=== PATIENT | female | born 2005 | race Two or more races ===

== ENCOUNTER 2025-05-10 12:09 | Observation (INO) | payer MEDICAID ==
[2025-05-10 12:36] LABS: Urine Protein, UAD TRACE (Negative)
[2025-05-10 12:42] LABS: Protein, Urine 39.5 mg/dL (1-14)
--- NOTE | 2025-05-10 12:50 | DVH ---
BIOPHYSICAL PROFILE HISTORY: PIH TECHNIQUE: Multiple transabdominal real-time grayscale sonographic images through the gravid uterus of the fetus with duplex Doppler color flow and M-mode spectral analysis FINDINGS: BIOPHYSICAL PROFILE: breathing score: 2 movement score: 2 tone score: 2 Quantitative GRIS score: 2 (GRIS: 14.1 Cm.) Total score: 8 The cervix not well visualized. Single live fetus in cephalic presentation. heart rate 142 beats per minute. Posterior placenta without previa or abruption IMPRESSION: Biophysical profile score: 8
[2025-05-10 12:56] LABS: Hematocrit 35.9 % (36.0-46.0); Hemoglobin 12.3 g/dL (12.2-16.2); Mean Corpuscular Hemoglobin 30.4 pg (28.0-32.0); Mean Corpuscular Volume 88.6 fL (80.0-100.0); Nucleated Red Blood Cells % 0.1 %
[2025-05-10 13:09] LABS: Alanine Aminotransferase 13 U/L (7-40); Albumin 3.5 g/dL (3.2-4.8); Alkaline Phosphatase 113 U/L (46-116); Anion Gap 9 (5-15); Glucose 86 mg/dL (74-106); Potassium 4.2 mmol/L (3.5-5.1); Sodium 139 mmol/L (136-145); Total Protein 6.2 g/dL (5.7-8.2); Uric Acid 4.9 mg/dL (3.1-7.8)
[2025-05-10 13:10] LABS: BUN/Creatinine Ratio 8.9 (10.0-20.0); Bilirubin, Total 0.3 mg/dL (0.2-1.0); Blood Urea Nitrogen < 5 mg/dL (9-23); Calcium 8.7 mg/dL (8.7-10.4); Carbon Dioxide 19 mmol/L (20-31); Chloride 111 mmol/L (98-107)
[2025-05-10 13:16] LABS: INR 0.88 (0.9-1.15); Partial Thromboplastin Time 25.1 SEC (24.5-34.5); Prothrombin Time 9.4 sec (9.3-11.8)
== END 2025-05-10 14:01 | disposition home or self-care (01) ==
LOC: LDRP 12:09 → UNDOADMOB 12:09 → LDRP 12:14
PROVIDERS: ADMIT Obstetrics & Gynecology; ATTEND Obstetrics & Gynecology
DX: O26.893 Other specified pregnancy related conditions, third trimester (principal); R03.0 Elevated blood-pressure reading, without diagnosis of hypertension; Z3A.32 32 weeks gestation of pregnancy; Z98.890 Other specified postprocedural states; Z86.2 Personal history of diseases of the blood and blood-forming organs and certain disorders involving the immune mechanism
CPT/HCPCS: 36415; 59025; 76819; 80053; 81001; 81002; 82570; 84156; 84550; 85025; 85610; 85730; 94760; G0378

== ENCOUNTER 2025-05-16 06:31 | Observation (INO) | payer MEDICAID ==
--- NOTE | 2025-05-16 11:44 | DVH ---
BIOPHYSICAL PROFILE HISTORY: PIH TECHNIQUE: Multiple transabdominal real-time grayscale sonographic images through the gravid uterus of the fetus with duplex Doppler color flow and M-mode spectral analysis FINDINGS: BIOPHYSICAL PROFILE: breathing score: 2 movement score: 2 tone score: 2 Quantitative GRIS score: 2 (GRIS: 15 Cm.) Total score: 8 The cervix not well visualized. Single live fetus in cephalic presentation. heart rate 141 beats per minute. Posterior placenta without previa or abruption IMPRESSION: Biophysical profile score: 8
[2025-05-16 12:13] LABS: Protein, Urine 41.8 mg/dL (1-14)
--- NOTE | 2025-05-16 12:57 | DVHDS2 ---
Physician Discharge Progress N Final Diagnosis: pih 33wks Operations or Procedures: Operations or Procedures nst reactive reviwed,sono Condition on Discharge: Good Disposition: Home Discharge Instructions: Diet: Regular Activity: No Restrictions, As Tolerated Medications: na Follow Up Care: Specialist: 1w Discharge Statement: "Patient was advised to return to the ER or call 911 if any headaches, dizziness, shortness of breath, chest pain, abdominal pain, bleeding, fevers, or worsening of medical condition. Patient was counseled about treatment plan, medications, possible side effects, patientverbalized understanding. All questions were answered to the best of my ability. This discharge took greater then 30 minutes in planning, reviewing documentat ion, counseling the patient, and discussing with other team members." Visit Coding OBGYN Date of Service: May 16, 2025 Billing Provider: RAJWINDER SANCHEZ DO CONTINUOUS DRIER HELPER Common Visit Codes: [id number] OBS CARE (HIGH) CONTINUOUS DRIER HELPER Procedure Codes: 68171-29- NON-STRESS TEST RAJWINDER SANCHEZ DO May 16, 2025 12:57
[2025-05-16 13:17] LABS: Urine Total Volume, 24 Hours 1400 mL
[2025-05-16 13:33] LABS: Protein, Urine < 6.0 mg/dL (1-14)
[2025-05-16 13:48] LABS: Creatinine Clearance, Urine 65.89 mL/min (75-115)
== END 2025-05-16 13:24 | disposition home or self-care (01) ==
LOC: UNDOADMOB 11:01 → LDRP 11:01 → UNDODISOB 13:24
PROVIDERS: ADMIT Obstetrics & Gynecology; ATTEND Obstetrics & Gynecology
DX: O13.3 Gestational [pregnancy-induced] hypertension without significant proteinuria, third trimester (principal); Z98.890 Other specified postprocedural states; Z3A.33 33 weeks gestation of pregnancy
CPT/HCPCS: 59025; 76819; 81002; 82570; 82575; 84156; 94760; G0378

== ENCOUNTER 2025-05-23 06:30 | Observation (INO) | payer MEDICAID ==
[2025-05-23] MEDS ORDERED: PREN-96 PO (10:21)
--- NOTE | 2025-05-23 10:44 | DVH ---
BIOPHYSICAL PROFILE HISTORY: PIH Comparison Study: US BIOPHYSICAL PROFILE on DOS: 05/16/25, US BIOPHYSICAL PROFILE on DOS: 05/10/25 TECHNIQUE: Multiple real-time grayscale sonographic images through the gravid uterus of the fetus wi th duplex Doppler color flow and M-mode spectral analysis FINDINGS: BIOPHYSICAL PROFILE: breathing score: 2 movement score: 2 tone score: 2 Quantitative GRIS score: 2 (GRIS: 16.4 Cm.) Total score: 8 The cervix is not visualized Single live fetus in cephalic presentation. heart rate 136 beats per minute. Posterior placenta without previa or abruption IMPRESSION: Biophysical profile score: 8
--- NOTE | 2025-05-24 00:02 | DVHDS2 ---
Physician Discharge Progress N Final Diagnosis: polyhydramnia 34wks Operations or Procedures: Operations or Procedures nst reactive reviwed,sono Condition on Discharge: Good Disposition: Home Discharge Instructions: Diet: Regular Activity: No Restrictions, As Tolerated Follow Up/Referral: as scheduled. Medications: na Follow Up Care: Specialist: 3d Discharge Statement: "Patient was advised to return to the ER or call 911 if any headaches, dizziness, shortness of breath, chest pain, abdominal pain, bleeding, fevers, or worsening of medical condition. Patient was counseled about treatment plan, medications, possible side effects, patientverbalized understanding. All questions were answered to the best of my ability. This discharge took greater then 30 minutes in planning, reviewing documentation, counseling the patient, and discussing with other team members." Visit Coding OBGYN Date of Service: May 23, 2025 Billing Provider: RAJWINDER SANCHEZ DO SLABBING MACHINE OPERATOR Common Visit Codes: 11274-[id number] INP/OBS CARE (HIGH) SLABBING MACHINE OPERATOR Procedure Codes: 57471-36- NON-STRESS TEST RAJWINDER SANCHEZ DO May 24, 2025 00:02
== END 2025-05-23 11:40 | disposition home or self-care (01) ==
LOC: UNDOADMOB 09:44 → LDRP 09:44 → UNDODISOB 11:40
PROVIDERS: ADMIT Obstetrics & Gynecology; ATTEND Obstetrics & Gynecology
DX: O40.3XX0 Polyhydramnios, third trimester, not applicable or unspecified (principal); Z3A.34 34 weeks gestation of pregnancy; Z79.899 Other long term (current) drug therapy
CPT/HCPCS: 59025; 76819; 81002; 94760; G0378

== ENCOUNTER 2025-05-30 06:44 | Observation (INO) | payer MEDICAID ==
[~2025-05-30] VITALS: Ht 154.9 cm; Wt 85.3 kg
[~2025-05-30 06:44] MED LIST: PREN-96 PO
--- NOTE | 2025-05-30 10:55 | DVH ---
BIOPHYSICAL PROFILE HISTORY: PIH TECHNIQUE: Multiple transabdominal real-time grayscale sonographic images through the gravid uterus of the fetus with duplex Doppler color flow and M-mode spectral analysis FINDINGS: BIOPHYSICAL PROFILE: breathing score: 2 movement score: 2 tone score: 2 Quantitative GRIS score: 2 (GRIS: 17 Cm.) Total score: 8/8 The cervix is not well evaluated on this exam. Single live fetus in cephalic presentation. heart rate 137 beats per minute. Posterior placenta without previa or abruption IMPRESSION: 1. Biophysical profile score: 8/
--- NOTE | 2025-06-01 16:29 | DVHDS2 ---
Physician Discharge Progress N Final Diagnosis: 35wks [facility] Operations or Procedures: Operations or Procedures nst reactive reviwed,sono Condition on Discharge: Good Disposition: Home Discharge Instructions: Diet: Consistent carbohydrate Activity: Light activity Medications: na Follow Up Care: Specialist: 2d Discharge Statement: "Patient was advised to return to the ER or call 911 if any headaches, dizziness, shortness of breath, chest pain, abdominal pain, bleeding, fevers, or worsening of medical condition. Patient was counseled about treatment plan, medications, possible side effects, patientverbalized understanding. All questions were answered to the best of my ability. This discharge took greater then 30 minutes in planning, reviewing document ation, counseling the patient, and discussing with other team members." Visit Coding OBGYN Date of Service: May 30, 2025 Billing Provider: RAJWINDER SANCHEZ DO CAT SCAN TECH Common Visit Codes: 67561-ITTILPD OBS CARE (HIGH) CAT SCAN TECH Procedure Codes: 63319-86- NON-STRESS TEST RAJWINDER SANCHEZ DO Jun 01, 2025 16:29
== END 2025-05-30 11:34 | disposition home or self-care (01) ==
LOC: LDRP 09:55 → UNDOADMOB 09:55 → LDRP 10:00
PROVIDERS: ADMIT Obstetrics & Gynecology; ATTEND Obstetrics & Gynecology
DX: O13.3 Gestational [pregnancy-induced] hypertension without significant proteinuria, third trimester (principal); Z3A.35 35 weeks gestation of pregnancy; Z98.890 Other specified postprocedural states
CPT/HCPCS: 59025; 76819; 81002; 94760; G0378

== ENCOUNTER 2025-06-01 13:45 | Observation (INO) | payer MEDICAID ==
[2025-06-01 14:22] LABS: Hematocrit 38.4 % (36.0-46.0); Hemoglobin 13.0 g/dL (12.2-16.2); Mean Corpuscular Hemoglobin 29.6 pg (28.0-32.0); Mean Corpuscular Volume 87.7 fL (80.0-100.0); Nucleated Red Blood Cells % 0.0 %
[2025-06-01 14:34] LABS: Alanine Aminotransferase 10 U/L (7-40); Albumin 3.8 g/dL (3.2-4.8); Alkaline Phosphatase 132 U/L (46-116); Anion Gap 11 (5-15); BUN/Creatinine Ratio 12.7 (10.0-20.0); Bilirubin, Total 0.5 mg/dL (0.2-1.0); Blood Urea Nitrogen 8 mg/dL (9-23); Calcium 8.7 mg/dL (8.7-10.4); Carbon Dioxide 20 mmol/L (20-31); Chloride 105 mmol/L (98-107); Glucose 88 mg/dL (74-106); Potassium 4.6 mmol/L (3.5-5.1); Sodium 136 mmol/L (136-145); Total Protein 6.7 g/dL (5.7-8.2); Uric Acid 5.0 mg/dL (3.1-7.8)
[2025-06-01 14:35] LABS: INR 0.91 (0.9-1.15); Partial Thromboplastin Time 24.8 SEC (24.5-34.5); Prothrombin Time 9.7 sec (9.3-11.8)
[2025-06-01 15:44] LABS: Urine Protein, UAD 1+ (Negative)
[2025-06-01 15:48] LABS: Protein, Urine 42.4 mg/dL (1-14)
--- NOTE | 2025-06-01 16:25 | DVHDS2 ---
Physician Discharge Progress N Final Diagnosis: Gestational HTN Operations or Procedures: Operations or Procedures NST Commentary: Commentary PIH labs negative Condition on Discharge: Stable Disposition: Home Discharge Instructions: Diet: Regular Activity: No Restrictions, As Tolerated Follow Up/Referral: As scheduled Medications: NA Follow Up Care: Discharge Statement: "Patient was advised to return to the ER or call 911 if any headaches, dizziness, shortness of breath, chest pain, abdominal pain, bleeding, fevers, or worsening of medical condition. Patient was counseled about treatment plan, medications, possible side effects, patientverbalized understanding. All questions were answered to the best of my ability. This discharge took greater then 30 minutes in planning, reviewing documentation, counseling the patient, and discussing with other team members." Visit Coding OBGYN Date of Service: Jun 01, 2025 Billing Provider: ROS MEDRANO DO FURNITURE UPHOLSTERER APPRENTICE Common Visit Codes: 10545-JQC/OBS SAME DATE (HIGH) FURNITURE UPHOLSTERER APPRENTICE Procedure Codes: 12697-18- NON-STRESS TEST ROS MEDRANO DO Jun 01, 2025 16:25
== END 2025-06-01 16:30 | disposition home or self-care (01) ==
LOC: LDRP 13:45
PROVIDERS: ADMIT Obstetrics & Gynecology; ATTEND Obstetrics & Gynecology
DX: O13.3 Gestational [pregnancy-induced] hypertension without significant proteinuria, third trimester (principal); O21.2 Late vomiting of pregnancy; Z3A.35 35 weeks gestation of pregnancy; Z98.890 Other specified postprocedural states
CPT/HCPCS: 36415; 59025; 80053; 81001; 81002; 82570; 84156; 84550; 85025; 85610; 85730; 94760; G0378

== ENCOUNTER 2025-06-06 08:08 | Observation (INO) | payer MEDICAID ==
--- NOTE | 2025-06-06 10:50 | DVH ---
BIOPHYSICAL PROFILE HISTORY: PIH TECHNIQUE: Multiple transabdominal real-time grayscale sonographic images through the gravid uterus of the fetus with duplex Doppler color flow and M-mode spectral analysis FINDINGS: BIOPHYSICAL PROFILE: breathing score: 2 movement score: 2 tone score: 2 Quantitative RGIS score: 2 (GRIS: 14.5 Cm.) Total score: 8 The cervix not well visualized. Single live fetus in cephalic presentation. heart rate 141 beats per minute. Posterior placenta without previa or abruption IMPRESSION: Biophysical profile score: 8
--- NOTE | 2025-06-06 13:17 | DVHDS2 ---
Physician Discharge Progress N Final Diagnosis: pih 36wks Operations or Procedures: Operations or Procedures nst reactive reviwed,yueo Condition on Discharge: Good Disposition: Home Discharge Instructions: Diet: Regular Activity: Light activity Medications: na Follow Up Care: Specialist: 4d Discharge Statement: "Patient was advised to return to the ER or call 911 if any headaches, dizziness, shortness of breath, chest pain, abdominal pain, bleeding, fevers, or worsening of medical condition. Patient was counseled about treatment plan, medications, possible side effects, patientverbalized understanding. All questions were answered to the best of my ability. This discharge took greater then 30 minutes in planning, reviewing documentation, counseling the patient, and discussing with other team members." Visit Coding OBGYN Date of Service: Jun 06, 2025 Billing Provider: RAJWINDER SANCHEZ DO IT RISK ANALYST Common Visit Codes: [id number] OBS CARE (HIGH) IT RISK ANALYST Procedure Codes: 24025-17- NON-STRESS TEST RAJWINDER SANCHEZ DO Jun 06, 2025 13:17
== END 2025-06-06 11:25 | disposition home or self-care (01) ==
LOC: UNDOADMOB 09:54 → LDRP 09:54
PROVIDERS: ADMIT Obstetrics & Gynecology; ATTEND Obstetrics & Gynecology
DX: O13.3 Gestational [pregnancy-induced] hypertension without significant proteinuria, third trimester (principal); Z3A.36 36 weeks gestation of pregnancy; Z98.890 Other specified postprocedural states
CPT/HCPCS: 59025; 76819; 81002; 94760; G0378

== ENCOUNTER 2025-06-13 06:43 | Observation (INO) | payer MEDICAID ==
--- NOTE | 2025-06-13 19:55 | DVH ---
BIOPHYSICAL PROFILE HISTORY: PIH TECHNIQUE: Multiple transabdominal real-time grayscale sonographic images through the gravid uterus of the fetus with duplex Doppler color flow and M-mode spectral analysis FINDINGS: BIOPHYSICAL PROFILE: breathing score: 2 movement score: 2 tone score: 2 Quantitative GRIS score: 2 (GRIS: 15 Cm.) Total score: 8/8 The cervix obscured by head Single live fetus in cephalic presentation. heart rate 148 beats per minute. Posterior Grade 2 placenta without previa or abruption Single live fetus at 37 weeks 4 days Biophysical profile score 8/8 corresponding to an FER of 06/30/2025 IMPRESSION: 1. Biophysical profile score: 8/8 HS:Y
--- NOTE | 2025-06-13 19:57 | DVHDS2 ---
Physician Discharge Progress N Final Diagnosis: testing for BP monitoring Operations or Procedures: Operations or Procedures 20yo IUP@37.4wks, +FM, denies UCs/LOF/VB/MARRUFO/vision changes/RUQ pain VSS, normotensive, see CPN NST reactive BPP 04/20 FKC/PreE/labor precautions reviewed Dr. Marrufo consulted, agrees with POC. Condition on Discharge: Stable Disposition: Home Discharge Instructions: Diet: Regular Activity: No Restrictions, As Tolerated Medications: see med list Follow Up Care: Specialist: f/u in 1wk Discharge Statement: "Patient was advised to return to the ER or call 911 if any headaches, dizziness, shortness of breath, chest pain, abdominal pain, bleeding, fevers, or worsening of medical condition. Patient was counseled about treatment plan, medications, possible side effects, patientverbalized understanding. All questions were answered to the best of my ability. This discharge took greater then 30 minutes in planning, reviewing documentation, counseling the patient, and discussing with other team members." Visit Coding OBGYN Date of Service: Jun 13, 2025 Billing Provider: JANAK RANDLE CNM IMITATION MARBLE MECHANIC Common Visit Codes: 50504-[id number] OBS CARE (HIGH) IMITATION MARBLE MECHANIC Procedure Codes: 58210-86- NON-STRESS TEST JANAK RANDLE CNM Jun 13, 2025 19:57
== END 2025-06-13 20:17 | disposition home or self-care (01) ==
LOC: LDRP 19:07
PROVIDERS: ADMIT Obstetrics & Gynecology; ATTEND Obstetrics & Gynecology
DX: Z36.89 Encounter for other specified antenatal screening (principal); Z3A.37 37 weeks gestation of pregnancy; Z98.890 Other specified postprocedural states
CPT/HCPCS: 59025; 76819; 81002; 94760; G0378

== ENCOUNTER 2025-06-16 10:01 | Observation (INO) | payer MEDICAID ==
--- NOTE | 2025-06-16 20:46 | DVH ---
BIOPHYSICAL PROFILE HISTORY: IUGR Comparison Study: US BIOPHYSICAL PROFILE on DOS: 06/13/25, US BIOPHYSICAL PROFILE on DOS: 06/06/25, US BIOPHYSICAL PROFILE on DOS: 05/30/25, US BIOPHYSICAL PROFILE on DOS: 05/23/25, US BIOPHYSICAL PROFILE o n DOS: 05/16/25 TECHNIQUE: Multiple real-time grayscale sonographic images through the gravid uterus of the fetus wi th duplex Doppler color flow and M-mode spectral analysis FINDINGS: BIOPHYSICAL PROFILE: breathing score: 2 movement score: 2 tone score: 2 Quantitative GRIS score: 2 (GRIS: 12.6 Cm.) Total score: 8, normal Single live fetus in cephalic presentation. heart rate 154 beats per minute. Unremarkable placenta without previa or abruption Single live intrauterine . IMPRESSION: 1. Biophysical profile score: 8/8, normal
--- NOTE | 2025-06-17 09:36 | DVHDS2 ---
Physician Discharge Progress N Final Diagnosis: IUGR 38WKS Operations or Procedures: Operations or Procedures NST REACTIVE REVIWED,SONO Condition on Discharge: Good Disposition: Home Discharge Instructions: Diet: Regular Activity: Light activity Medications: NA Follow Up Care: Specialist: 3D Discharge Statement: "Patient was advised to return to the ER or call 911 if any headaches, dizziness, shortness of breath, chest pain, abdominal pain, bleeding, fevers, or worsening of medical condition. Patient was counseled about treatment plan, medications, possible side effects, patientverbalized understanding. All questions were answered to the best of my ability. This discharge took greater then 30 minutes in planning, reviewing documentation, counseling the patient, and discussing with other team members." Visit Coding OBGYN Date of Service: Jun 16, 2025 Billing Provider: RAJWINDER SANCHEZ DO GRANULATOR Common Visit Codes: [id number] OBS CARE (HIGH) GRANULATOR Procedure Codes: 26616-05- NON-STRESS TEST RAJWINDER SANCHEZ DO Jun 17, 2025 09:36
== END 2025-06-16 11:49 | disposition home or self-care (01) ==
LOC: LDRP 10:01
PROVIDERS: ADMIT Obstetrics & Gynecology; ATTEND Obstetrics & Gynecology
DX: O36.5930 Maternal care for other known or suspected poor fetal growth, third trimester, not applicable or unspecified (principal); Z3A.38 38 weeks gestation of pregnancy; Z98.890 Other specified postprocedural states
CPT/HCPCS: 59025; 76819; 81002; 94760; G0378

== ENCOUNTER 2025-06-19 16:23 | Observation (INO) | payer MEDICAID ==
[~2025-06-19] VITALS: Ht 154.9 cm; Wt 88.0 kg
[2025-06-19 17:02] LABS: Hematocrit 37.0 % (36.0-46.0); Hemoglobin 12.7 g/dL (12.2-16.2); Mean Corpuscular Hemoglobin 30.2 pg (28.0-32.0); Mean Corpuscular Volume 88.0 fL (80.0-100.0); Nucleated Red Blood Cells % 0.0 %
[2025-06-19 17:14] LABS: Protein, Urine 137.3 mg/dL (1-14)
--- NOTE | 2025-06-19 17:16 | DVH ---
EXAM: US BIOPHYSICAL PROFILE HISTORY: PIH COMPARISON: US BIOPHYSICAL PROFILE on DOS: 06/16/25 TECHNIQUE: Transabdominal real time barksdale scale, color, and doppler evaluation. Permanent images are maintained in the patient record. FINDINGS: Normal biophysical profile score 8 out of the. Normal heart tone 135 beats per minute. Cephal ic presentation. Normal amniotic fluid index measuring 13.1 cm. Posterior placenta location. No ngoc centa abruption. IMPRESSION: 1. Normal biophysical profile score.
[2025-06-19 17:21] LABS: Alanine Aminotransferase 14 U/L (7-40); Albumin 3.7 g/dL (3.2-4.8); Anion Gap 11 (5-15); BUN/Creatinine Ratio 15.4 (10.0-20.0); Blood Urea Nitrogen 10 mg/dL (9-23); Calcium 9.4 mg/dL (8.7-10.4); Carbon Dioxide 20 mmol/L (20-31); Glucose 82 mg/dL (74-106); Sodium 138 mmol/L (136-145); Total Protein 6.9 g/dL (5.7-8.2); Uric Acid 3.8 mg/dL (3.1-7.8)
[2025-06-19 17:25] LABS: INR 0.86 (0.9-1.15); Partial Thromboplastin Time 24.8 SEC (24.5-34.5); Prothrombin Time 9.3 sec (9.3-11.8)
[2025-06-19 17:35] LABS: Alkaline Phosphatase 151 U/L (46-116); Bilirubin, Total 0.2 mg/dL (0.2-1.0); Chloride 107 mmol/L (98-107); Potassium 5.4 mmol/L (3.5-5.1)
[2025-06-19 17:42] LABS: Urine Protein, UAD 1+ (Negative)
[2025-06-19] MEDS: LACTATED RINGER'S 1,000 ML IV ONE (19:10)
[2025-06-19 21:38] LABS: Anion Gap 13 (5-15); BUN/Creatinine Ratio 21.2 (10.0-20.0); Blood Urea Nitrogen 11 mg/dL (9-23); Potassium 4.0 mmol/L (3.5-5.1); Sodium 140 mmol/L (136-145)
[2025-06-19 21:56] LABS: Alanine Aminotransferase < 9 U/L (7-40); Albumin 2.9 g/dL (3.2-4.8); Alkaline Phosphatase 116 U/L (46-116); Bilirubin, Total 0.2 mg/dL (0.2-1.0); Calcium 8.0 mg/dL (8.7-10.4); Carbon Dioxide 19 mmol/L (20-31); Chloride 108 mmol/L (98-107); Glucose 68 mg/dL (74-106); Total Protein 5.2 g/dL (5.7-8.2)
[2025-06-19 22:54] LABS: Protein, Urine 42.9 mg/dL (1-14)
--- NOTE | 2025-06-19 23:15 | DVHDS2 ---
Physician Discharge Progress N Final Diagnosis: testing for IUGR and PIH Operations or Procedures: Operations or Procedures S: 20yo IUP@38.3wks, pt sent in from Dr. Ornelas's office for elevated BP. Denies UCs/LOF/VB/MARRUFO/vision changes/RUQ pain. Endorses +FM. PNC with Dr. Marrufo, complicated by IUGR. Pt has f/u with Dr. Ornelas on 06/21/25. O: VSS, see CPN NST reactive PO hydration - water and juice Laboratory Tests Test 06/19/25 16:51 06/19/25 16:53 06/19/25 21:02 06/19/25 21:10 Range/Units White Blood Count 10.3 4.4-10.8 10^3/uL Red Blood Count 4.20 4.0-5.20 10^6/uL Hemoglobin 12.7 12.2-16.2 g/dL Hematocrit 37.0 36.0-46.0 % Mean Corpuscular Volume 88.0 80.0-100.0 fL Mean Corpuscular Hemoglobin 30.2 28.0-32.0 pg Mean Corpuscular Hemoglobin Concent 34.3 32.0-36.0 g/dL Red Cell Distribution Width 13.6 11.8-14.3 % Platelet Count 195 140-450 10^3/uL Mean Platelet Volume 10.7 6.9-10.8 fL Neutrophils (%) (Auto) 69.9 37.0-80.0 % Lymphocytes (%) (Auto) 17.4 10.0-50.0 % Monocytes (%) (Auto) 8.1 0.0-12.0 % Eosinophils (%) (Auto) 4.1 0.0-7.0 % Basophils (%) (Auto) 0.5 0.0-2.0 % Neutrophils # (Auto) 7.2 1.6-8.6 10 ^3/uL Lymphocytes # (Auto) 1.8 0.4-5.4 10 ^3/uL Monocytes # (Auto) 0.8 0-1.3 10 ^3/uL Eosinophils # (Auto) 0.4 0-0.8 10 ^3/uL Basophils # (Auto) 0 0-0.2 10 ^3/uL Nucleated Red Blood Cells 0.0 % Prothrombin Time 9.3 9.3-11.8 sec Prothrombin Time INR 0.86 L 0.9-1.15 Activated Partial Thromboplast Time 24.8 24.5-34.5 SEC Sodium Level 138 140 136-145 mmol/L Potassium Level 5.4 H 4.0 3.5-5.1 mmol/L Chloride Level 107 108 H 98-107 mmol/L Carbon Dioxide Level 20 19 L 20-31 mmol/L Anion Gap 11 13 5-15 Blood Urea Nitrogen 10 11 9-23 mg/dL Creatinine 0.65 0.52 L 0.550-1.02 mg/dL Glomerular Filtration Rate Calc 128 135 >90 mL/min BUN/Creatinine Ratio 15.4 21.2 H 10.0-20.0 Serum Glucose 82 68 L 74-106 mg/dL Uric Acid 3.8 3.1-7.8 mg/dL Calcium Level 9.4 8.0 L 8.7-10.4 mg/dL Total Bilirubin 0.2 0.2 0.2-1.0 mg/dL Aspartate Amino Transferase (AST) 37 11 L 13-40 U/L Alanine Aminotransferase (ALT) 14 < 9 7-40 U/L Alkaline Phosphatase 151 H 116 46-116 U/L Total Protein 6.9 5.2 L 5.7-8.2 g/dL Albumin 3.7 2.9 L 3.2-4.8 g/dL Urine Color Yellow Yellow Urine Clarity Clear Clear Urine pH 6.5 5.0-9.0 Urine Specific [place] 1.033 1.001-1.035 Urine Protein 1+ H Negative Urine Ketones Negative Negative Urine Blood Negative Negative /uL Urine Nitrite Negative Negative Urine Bilirubin Negative Negative Urine Urobilinogen Normal Negative mg/dL Urine Leukocyte Esterase 2+ Negative /uL Urine RBC 3 0 - 4 /hpf Urine Microscopic WBC 22 H 0-5 /HPF Urine Squamous Epithelial Cells Few <5 /hpf Urine Bacteria Few H None Seen /hpf Urine Mucus Few None Seen Urine Creatinine 177.11 H 56.95 30.0-125.0 mg/dL Urine Protein/Creatinine Ratio 0.78 0.75 Urine Glucose Normal Normal mg/dL Urine Total Protein 137.3 H 42.9 H 1-14 mg/dL Test 06/19/25 23:22 Range/Units POC Glucose 135 H 70-106 mg/dl A: 20yo IUP@38.3wks testing for IUGR/PIH P: Dr. Marrufo consulted, plan is to D/C home f/u for NST/BPP on 06/21/[address] Marrufo FKC/PreE/labor precautions reviewed Other Interventions Other Interventions [place] [address] Ph: [phone] DIAGNOSTIC IMAGING Diagnostic Imaging Report : [id number] Signed PATIENT: ABBIE TUTTLE ACCT: [id number] UNIT: [id number] : 2005 LOC: [facility] ROOM / BED: TRIAGE3 / A AGE / SEX: 20 / F ADM STATUS: ADM IN SERVICE 35 ORDERING PHYSICIAN: JANAK RANDLE CNM PROCEDURE(s): BPP - BIOPHYSICAL PROFILE REASON: PIH ORDER NUMBER(s): [id number], ACCESSION NUMBER(s): [id number] EXAM: US BIOPHYSICAL PROFILE HISTORY: PIH COMPARISON: US BIOPHYSICAL PROFILE on DOS: 06/16/25 TECHNIQUE: Transabdominal real time barksdale scale, color, and doppler evaluation. Permanent images are maintained in the patient record. FINDINGS: Normal biophysical profile score 8 out of the. Normal heart tone 135 beats per minute. Cephalic presentation. Normal amniotic fluid index measuring 13.1 cm. Posterior placenta location. No placenta abruption. IMPRESSION: 1. Normal biophysical profile score. ATED BY: LANRE ROBERTS MD DICTATED DATE/TIME: 06/19/251712 SIGNED BY: LANRE ROBERTS MD SIGNED DATE/TIME: 06/19/251712 CC: Condition on Discharge: Stable Disposition: Home Discharge Instructions: Diet: Regular Activity: No Restrictions, As Tolerated Medications: see med list Follow Up Care: Specialist: f/u for NST/BPP on 06/21/[address] Marrufo Discharge Statement: "Patient was advised to return to the ER or call 911 if any headaches, dizziness, shortness of breath, chest pain, abdominal pain, bleeding, fevers, or worsening of medical condition. Patient was counseled about treatment plan, medications, possible side effects, patientverbalized understanding. All questions were answered to the best of my ability. This discharge took greater then 30 minutes in planning, reviewing documentation , counseling the patient, and discussing with other team members." Visit Coding OBGYN Date of Service: Jun 20, 2025 Billing Provider: JANAK RANDLE CNM UAT TESTER Common Visit Codes: [id number] OBS CARE (HIGH) UAT TESTER Procedure Codes: 36993-99- NON-STRESS TEST JANAK RANDLE CNM Jun 19, 2025 23:15
[2025-06-19] MEDS ORDERED: PREN1TAB71 PO (23:38)
== END 2025-06-20 | disposition home or self-care (01) ==
LOC: LDRP 16:23
PROVIDERS: ADMIT Obstetrics & Gynecology; ATTEND Obstetrics & Gynecology
DX: O13.3 Gestational [pregnancy-induced] hypertension without significant proteinuria, third trimester (principal); O36.5930 Maternal care for other known or suspected poor fetal growth, third trimester, not applicable or unspecified; Z3A.38 38 weeks gestation of pregnancy; Z98.890 Other specified postprocedural states; Z79.899 Other long term (current) drug therapy
CPT/HCPCS: 36415; 59025; 76819; 80053; 81001; 81002; 82570; 82962; 84156; 84550; 85025; 85610; 85730; 94762; 96360; 96361; G0378; 96366

== ENCOUNTER 2025-06-21 06:13 | Inpatient (IN) | payer MEDICAID ==
[~2025-06-21] VITALS: Ht 154.9 cm; Wt 87.5 kg
[~2025-06-21 06:13] MED LIST changes: +PREN1TAB71 PO
[2025-06-21] MEDS ORDERED: LIDOCAINE 2%HCL (LOCAL ANESTH.) INJ 20ML MDV IJ PRN (23:15)
[2025-06-21] MEDS ORDERED: BUTORPHANOL TARTRATE 2 MG/1 ML VIAL IV PRN ×2 (23:15)
[2025-06-21 23:40] LABS: Hematocrit 34.9 % (36.0-46.0); Hemoglobin 11.8 g/dL (12.2-16.2); Mean Corpuscular Hemoglobin 29.9 pg (28.0-32.0); Mean Corpuscular Volume 88.1 fL (80.0-100.0); Nucleated Red Blood Cells % 0.0 %
[2025-06-21 23:55] LABS: INR 0.86 (0.9-1.15); Partial Thromboplastin Time 24.5 SEC (24.5-34.5); Prothrombin Time 9.3 sec (9.3-11.8)
[2025-06-22] LABS: Alanine Aminotransferase 10 U/L (7-40); Albumin 3.5 g/dL (3.2-4.8); Alkaline Phosphatase 144 U/L (46-116); Anion Gap 12 (5-15); BUN/Creatinine Ratio 14.8 (10.0-20.0); Blood Urea Nitrogen 9 mg/dL (9-23); Calcium 8.6 mg/dL (8.7-10.4); Carbon Dioxide 20 mmol/L (20-31); Chloride 108 mmol/L (98-107); Glucose 113 mg/dL (74-106); Potassium 3.8 mmol/L (3.5-5.1); Sodium 140 mmol/L (136-145); Total Protein 6.2 g/dL (5.7-8.2); Uric Acid 4.5 mg/dL (3.1-7.8)
[2025-06-22 00:01] LABS: Bilirubin, Total 0.2 mg/dL (0.2-1.0)
--- NOTE | 2025-06-22 00:04 | DVHHP2 ---
OB CC & HPI Date Date of Admission: Jun 21, 2025 Patient Identification: : 2 Para: 0 EDC: Jun 30, 2025 EGA: 38w 5d Chief Complaints: Reason for admission: induction of labor Indication for induction: other (Pre-Eclampsia and IUGR) Other reason for admission: Pre-eclampsia & IUGR Admission Nurse Assessment Rev: Yes History of Present Complaints Ms Kirkland presents to Place for IOL for IUGR and pre eclampsia. She reports normal FM, no UC, no LOF, no MARRUFO, vision changes or epigastric pain. Past Medical History Cardiac: No pertinent Hx Pulmonary: No pertinent Hx Central Nervous System: No pertinent Hx GI: No pertinent Hx Hemotology/Oncology: No pertinent Hx Hepatobiliary: No pertinent Hx Psychiatric: No pertinent Hx Musculoskeletal: No pertinent Hx Rheumotologic: No pertinent Hx Infectious Disease: No peritnent Hx ENT: No pertinent Hx Renal/: No pertinent Hx Endocrine: No pertinent Hx Dermatology: No pertinent Hx Past Surgical History: No pertinent Hx OB History OB History Care: Good Care Ultrasounds: Normal mid trimester US Obstetrical Complications: Pre-eclampsia, Growth Restriction Medical Complications: None Allergies: Coded Allergies: Avocado (Verified Allergy, Intermediate, 06/19/25) ITCHY, TINGLING MOUTH AND THROAT Uncoded Allergies: MELON (Allergy, Intermediate, 06/19/25) ITCHY, TINGLING MOUTH AND THROAT Home Meds Reported Medications Vit W/ Ferrous Fumara (PNV PLUS MULTIVI) Plus Tab, 1 TAB PO DAILY, TAB 06/19/25 Vit W/ Ferrous Fumara ( One Daily) Daily Tab, 1 TAB PO DAILY, #90 TAB 3 Refills 05/23/25 Current Medications Current Medications Medications (Trade) Dose Ordered Sig/Miguel Route PRN Reason Start Time Stop Time Status Last Admin Lactated Ringer's 1,000 ml @ 125 mls/hr Q8H IV 06/21/25 23:15 Witch Sabrina (Tucks) 1 pad PRN PRN TOP PERINEAL AREA DISCOMFORT 06/21/25 23:15 Sodium Lauryl Sulfate (Phisoderm) 240 ml PRN PRN TOP PERINEAL AREA DISCOMFORT 06/21/25 23:15 Benzocaine (Dermoplast) 1 applic PRN PRN TOP PERINEAL AREA DISCOMFORT 06/21/25 23:15 Butorphanol Tartrate (Stadol Injection) 1 mg Q4HPRN PRN IV MODERATE PAIN (4-6 PAIN SCALE) 06/21/25 23:15 Butorphanol Tartrate (Stadol Injection) 2 mg Q4HPRN PRN IV SEVERE PAIN (7-10 PAIN SCALE) 06/21/25 23:15 Misoprostol (Cytotec) 50 mcg Q4HPRN PRN PO CERVICAL RIPENING 06/21/25 23:15 Lidocaine HCl (Xylocaine) 20 ml ONCE PRN IJ PERINEAL AREA DISCOMFORT 06/21/25 23:15 Family & Social History Family/Social History Past Family/Social History: Non pertinent Blood Type: O- Rubella: immune RPR/VDRL: Negative GBS Status: Negative HBsAG: Negative Review of Systems Constitutional: No symptom reported Ears, Nose, & Throat: No symptom reported Eyes: No symptom reported Pulmonary/Respiratory: No symptom reported Cardiovascular: No symptom reported Gastrointestinal: No symptom reported Genitourinary: No symptom reported Musculoskeletal: No symptom reported Skin: No symptom reported Psychiatric: No symptom reported Endocrine: No symptom reported Hemotologic/Lymphatic: No symptom reported OB Admission Exam Physical Exam HEENT: TMs Normal, Fontanelles Normal, Nasal Mucosa Normal, Eyes non-injected, Oropharynx Normal, PERRLA, Moist Membranes, EOMI Heart: Rhythm Normal Lungs: Clear Abdomen: Gravid (and non tender to palpation) Extremities: Normal Reflexes: Normal Cervical Dilatation: Fingertip (Exam by RN) Effacement: 0% Station: -2 Membranes: Intact Motor Grader Rough Grade Variability: Minimal (3-5) Contractions on Admission: None OB Plan Plan Admitting Diagnosis: <> IUP at 38w 5d <> IUGR <> Preeclampsia <> INDUCTION OF LABOR FOR IUGR AND PIH Plan: Induction Induction Methd: Misoprostol protocol Other Plan: IOL process, cervical ripening with medication, cervical ripening balloon, oxytocin etc including the risks, benefits and all her options including primary Section discussed with the patient & partner. The patient wishes to proceed with trial of vaginal delivery. Informed consent obtained. Risk of pain, bleeding, infection, discussed with the patient and partner Consent for possible blood transfusion obtained. All questions answered. Admit to Place for scheduled IOL Routine L&D admission orders Misoprostol per protocol EFM per policy & protocol Intrauterine resuscitation PRN Labor analgesia PRN Encourage frequent position change to facilitate labor & descent Supportive Care Anticipate Visit Coding OBGYN Date of Service: Jun 21, 2025 Billing Provider: EULOGIO SANCHEZ CNM ORDNANCE TECHNICIAN Common Visit Codes: [id number] INP/OBS CARE (HIGH) ORDNANCE TECHNICIAN Procedure Codes: 72084-75- NON-STRESS TEST EULOGIO SANCHEZ CNM Jun 22, 2025 00:04
[2025-06-22 00:16] LABS: Amphetamine Screen, Urine Neg (NEGATIVE); Barbiturate Scree,Urine Neg (NEGATIVE); Benzodiazephine Screen, Urine Neg (NEGATIVE); Cannabinoid Screen, Urine Neg (NEGATIVE); Cocaine Screen, Urine Neg (NEGATIVE); Opiate Scree,Urine Neg (NEGATIVE); Phencyclidine Screen, Urine Neg (NEGATIVE)
[2025-06-22 00:23] LABS: Protein, Urine 552.6 mg/dL (1-14)
[2025-06-22] MEDS: DERMOPLAST 60ML BOTTLE TOP PRN (00:26)
[2025-06-22] MEDS: PHISODERM TOP SOLN 240ML BTL TOP PRN (00:26)
[2025-06-22] MEDS: WITCH HAZEL-GLYCERIN PAD TOP PRN (00:26)
[2025-06-22] MEDS: LACTATED RINGER'S 1,000 ML IV SCH (00:34)
--- NOTE | 2025-06-22 00:35 | DVH ---
INDICATION: PRESENTING PART TECHNIQUE: Limited transabdominal obstetrical ultrasound. COMPARISON: None FINDINGS/IMPRESSION: Intrauterine gestation with cephalic presentation. A single image was submitted.
[2025-06-22 00:52] LABS: Urine Protein, UAD 3+ (Negative)
--- NOTE | 2025-06-22 01:38 | DVH ---
BIOPHYSICAL PROFILE HISTORY: Category 2 tracing TECHNIQUE: Multiple transabdominal real-time grayscale sonographic images through the gravid uterus of the fetus with duplex Doppler color flow and M-mode spectral analysis FINDINGS: BIOPHYSICAL PROFILE: breathing score: 2 movement score: 2 tone score: 2 Quantitative GRIS score: 2 (GRIS: 10.6 Cm.) Total score: 8 The cervix is not well assessed. Single intrauterine gestation in cephalic presentation. heart rate 138 beats per minute. Posterior placenta without previa or abruption IMPRESSION: 1. Biophysical profile score: 8/8.
[2025-06-22] MEDS: TERBUTALINE SULFATE 1 MG/ML 1ML VIAL SC ONE ×2 (02:19)
--- NOTE | 2025-06-22 05:00 | DVHPN2 ---
CNM Labor Progress Note Date and Time Seen Date Seen: Jun 22, 2025 Time Seen: 04:50 Subjective Patient reports: No new complaints Objective Vital Signs VSS Monitoring Method Monitoring Method: External Heart Rate Heart Rate Baseline: 125 Heart Rate Variability: Moderate Presence of FHR Accelerations: Yes Presence of FHR Decelerations: No Changes in Trends of Patterns: No Are all 5 Components of the FH: Yes Contractions Contractions Frequency: Occasional Duration of Contraction: 50 Contractions Intensity: Mild Contractions Resting Tone: Relaxed Membranes Membranes: Intact Vaginal Exam Vag Exam Deferred: Yes Medications Medications - Pitocin: No Medication - Epidural: No Medication - Other Misoprostol x 1 dose @ 00:27. Terbutaline x 1 dose @ 02:19 Lab Results Lab Results Current Medications Medications (Trade) Dose Ordered Sig/Miguel Start Time Stop Time Status Last Admin Dose Admin Lactated Ringer's 1,000 ml @ 125 mls/hr Q8H 06/21/25 23:15 06/22/25 00:34 125 MLS/HR Bon Bennett (Tucks) 1 pad PRN PRN 06/21/25 23:15 06/22/25 00:26 1 PAD Sodium Lauryl Sulfate (Phisoderm) 240 ml PRN PRN 06/21/25 23:15 06/22/25 00:26 240 ML Benzocaine (Dermoplast) 1 applic PRN PRN 06/21/25 23:15 06/22/25 00:26 1 APPLIC Butorphanol Tartrate (Stadol Injection) 1 mg Q4HPRN PRN 06/21/25 23:15 Butorphanol Tartrate (Stadol Injection) 2 mg Q4HPRN PRN 06/21/25 23:15 Misoprostol (Cytotec) 50 mcg Q4HPRN PRN 06/21/25 23:15 06/22/25 00:27 50 MCG Lidocaine HCl (Xylocaine) 20 ml ONCE PRN 06/21/25 23:15 Terbutaline Sulfate (Brethine Inj) 0.25 mg ONCE ONCE 06/22/25 02:15 06/22/25 02:16 DC 06/22/25 02:19 0.25 MG Laboratory Tests Test 06/21/25 23:24 06/21/25 23:10 Range/Units White Blood Count 8.9 4.4-10.8 10^3/uL Red Blood Count 3.96 L 4.0-5.20 10^6/uL Hemoglobin 11.8 L 12.2-16.2 g/dL Hematocrit 34.9 L 36.0-46.0 % Mean Corpuscular Volume 88.1 80.0-100.0 fL Mean Corpuscular Hemoglobin 29.9 28.0-32.0 pg Mean Corpuscular Hemoglobin Concent 33.9 32.0-36.0 g/dL Red Cell Distribution Width 13.4 11.8-14.3 % Platelet Count 176 140-450 10^3/uL Mean Platelet Volume 10.4 6.9-10.8 fL Neutrophils (%) (Auto) 61.0 37.0-80.0 % Lymphocytes (%) (Auto) 24.5 10.0-50.0 % Monocytes (%) (Auto) 10.1 0.0-12.0 % Eosinophils (%) (Auto) 4.1 0.0-7.0 % Basophils (%) (Auto) 0.3 0.0-2.0 % Neutrophils # (Auto) 5.4 1.6-8.6 10 ^3/uL Lymphocytes # (Auto) 2.2 0.4-5.4 10 ^3/uL Monocytes # (Auto) 0.9 0-1.3 10 ^3/uL Eosinophils # (Auto) 0.4 0-0.8 10 ^3/uL Basophils # (Auto) 0 0-0.2 10 ^3/uL Nucleated Red Blood Cells 0.0 % Prothrombin Time 9.3 9.3-11.8 sec Prothrombin Time INR 0.86 L 0.9-1.15 Activated Partial Thromboplast Time 24.5 24.5-34.5 SEC Sodium Level 140 136-145 mmol/L Potassium Level 3.8 3.5-5.1 mmol/L Chloride Level 108 H 98-107 mmol/L Carbon Dioxide Level 20 20-31 mmol/L Anion Gap 12 5-15 Blood Urea Nitrogen 9 9-23 mg/dL Creatinine 0.61 0.550-1.02 mg/dL Glomerular Filtration Rate Calc 130 >90 mL/min BUN/Creatinine Ratio 14.8 10.0-20.0 Serum Glucose 113 H 74-106 mg/dL Uric Acid 4.5 3.1-7.8 mg/dL Calcium Level 8.6 L 8.7-10.4 mg/dL Total Bilirubin 0.2 0.2-1.0 mg/dL Aspartate Amino Transferase (AST) 14 13-40 U/L Alanine Aminotransferase (ALT) 10 7-40 U/L Alkaline Phosphatase 144 H 46-116 U/L Total Protein 6.2 5.7-8.2 g/dL Albumin 3.5 3.2-4.8 g/dL Treponema pallidum Antibody Non-reactive Negative Hepatitis C Antibody Negative Negative Urine Color Yellow Yellow Urine Clarity Turbid H Clear Urine pH 6.5 5.0-9.0 Urine Specific Colman 1.041 H 1.001-1.035 Urine Protein 3+ H Negative Urine Ketones 1+ H Negative Urine Blood Trace H Negative /uL Urine Nitrite Negative Negative Urine Bilirubin Negative Negative Urine Urobilinogen 3 H Negative mg/dL Urine Leukocyte Esterase 2+ Negative /uL Urine RBC 11 0 - 4 /hpf Urine Microscopic WBC 53 H 0-5 /HPF Urine Squamous Epithelial Cells Mod <5 /hpf Urine Bacteria Few H None Seen /hpf Urine Mucus Few None Seen Urine Creatinine 431.12 H 30.0-125.0 mg/dL Urine Protein/Creatinine Ratio 1.28 Urine Glucose Trace Normal mg/dL Urine Total Protein 552.6 H 1-14 mg/dL Urine Opiates Screen Neg NEGATIVE Urine Fentanyl Screen Neg NEGATIVE Urine Barbiturates Screen Neg NEGATIVE Urine Phencyclidine Screen Neg NEGATIVE Urine Amphetamines Screen Neg NEGATIVE Urine Benzodiazepines Screen Neg NEGATIVE Urine Cocaine Screen Neg NEGATIVE Urine Cannabinoids Screen Neg NEGATIVE Plan Plan discussed with: Patient, Spouse Visit Coding OBGYN Date of Service: Jun 22, 2025 Billing Provider: EULOGIO SANCHEZ CNM NEWS WRITER Common Visit Codes: [id number] INP/OBS CARE(HIGH) NEWS WRITER Procedure Codes: 95816-76- NON-STRESS TEST EULOGIO SANCHEZ CNM Jun 22, 2025 05:00
[2025-06-22] MEDS: DINOPROSTONE 10MG VAG SUPP PV ONE (08:00)
[2025-06-22] MEDS ORDERED: LACT. RINGERS/OXYTOCIN 20UNITS 500 ML IV ONE ×3 (08:15→21:00)
[2025-06-22] MEDS ORDERED: TERBUTALINE SULFATE 1 MG/ML 1ML VIAL SC PRN (08:15)
[2025-06-22] MEDS: LACT. RINGERS/OXYTOCIN 20UNITS 1,000 ML IV SCH (08:48)
[2025-06-22] MEDS: ACETAMINOPHEN 500 MG TAB or CAP PO ONE (14:10)
[2025-06-22] MEDS ORDERED: ONDANSETRON HCL 4 MG/2 ML VIAL ONE (14:12)
[2025-06-22] MEDS: ONDANSETRON HCL 4 MG/2 ML VIAL IV PRN (14:14)
[2025-06-22] MEDS ORDERED: ROPIVACAINE HCL 100 ML ONE (17:04)
--- NOTE | 2025-06-22 20:48 | LDN2 ---
Labor and Delivery Note Date 06/22/25 Age 20 1 Para 1 EDC 38.6 wk Diagnosis Term IUP, IUGR, Pre-Eclampsia w/out Severe features Vaginal Delivery: VTX Vacuum Assisted: No Placenta: Spontaneous Sex: Female Weight Pending Apgars 9/9 Amniotic Fluid: Clear Anesthesia Epidural Episiotomy: No Repaired with 1st deg skin repaired left inner labium, 3-0 vicryl EBL 200 mL Labs Blood Bank 06/21/25 23:24: Blood Type O NEGATIVE Complications None Comments/Significant Med Pedro Categ 2 FHR pattern, variable decels in 1st stage of labor, improved w/ Amnioinfusion Categ 2 FHR, variable decels in 2nd stage of labor w/ pushing, no nuchal cord. Cord gases obtained, pH 7.33 Baby vigorous at , Apgars 9/9 Thin umbilical cord w/ 3 vessels. Small placenta, sent to pathology. baby and mother doing well, no elevated BP's in labor Visit Coding OBGYN Date of Service: Jun 22, 2025 Billing Provider: ROS MEDRANO DO TECHNOLOGY ADOPTION MANAGER Common Visit Codes: PROCEDURE ONLY TECHNOLOGY ADOPTION MANAGER Procedure Codes: [id number] OB CARE,VAG DELIVERY ROS MEDRANO DO Jun 22, 2025 20:48
[2025-06-22] MEDS ORDERED: ACETAMINOPHEN 325 MG TAB PO PRN (21:00)
[2025-06-22] MEDS ORDERED: ONDANSETRON ODT 4 MG TAB PO PRN (21:00)
[2025-06-22] MEDS: DOCUSATE SOD 100 MG CAP PO SCH (22:00)
[2025-06-22] MEDS ORDERED: RHO (D) IMMUNE GLOBULIN 300 MCG INJ IM ONE (22:00)
[2025-06-23] MEDS: IBUPROFEN 800 MG TAB PO SCH
[2025-06-23 03:33] VITALS: BP 116/74; PULSE 82; RESP 16; TEMP 98.4; O2SAT 96
[2025-06-23 05:42] LABS: Hematocrit 30.0 % (36.0-46.0); Hemoglobin 10.1 g/dL (12.2-16.2); Mean Corpuscular Hemoglobin 29.6 pg (28.0-32.0); Mean Corpuscular Volume 88.2 fL (80.0-100.0); Nucleated Red Blood Cells % 0.0 %
[2025-06-23 06:00] LABS: Alkaline Phosphatase 114 U/L (46-116); Anion Gap 8 (5-15); BUN/Creatinine Ratio 12.2 (10.0-20.0); Carbon Dioxide 23 mmol/L (20-31); Glucose 90 mg/dL (74-106); Potassium 4.4 mmol/L (3.5-5.1); Sodium 138 mmol/L (136-145)
[2025-06-23 06:13] LABS: Alanine Aminotransferase < 9 U/L (7-40); Albumin 2.8 g/dL (3.2-4.8); Bilirubin, Total 0.3 mg/dL (0.2-1.0); Blood Urea Nitrogen 6 mg/dL (9-23); Calcium 8.4 mg/dL (8.7-10.4); Chloride 107 mmol/L (98-107); Total Protein 4.8 g/dL (5.7-8.2)
[2025-06-23 07:00] VITALS: BP 125/74; PULSE 89; RESP 16; TEMP 98.2; O2SAT 98
--- NOTE | 2025-06-23 09:52 | DVHPN2 ---
Progress Note Date Seen: Jun 23, 2025 Subjective PPD#1 s/p . IOL for IUGR S: no complaints. Lochia mild. Pain controlled vital signs Vital Sign Date Time Temp Pulse Resp B/P (MAP) Pulse Ox O2 Delivery O2 Flow Rate FiO2 06/23/25 07:00 98.2 89 16 125/74 (91) 98 98.2 06/23/25 07:00 Room Air Total Intake and Output 06/22/25 06/22/25 06/23/25 15:00 23:00 07:00 Output Total 1100 ml Balance -1100 ml medications Current Medications Medications Dose Ordered Sig/Miguel Route Start Time Stop Time Status Last Admin Dose Admin [place] Sabrina 1 pad PRN PRN TOP 06/21/25 23:15 06/22/25 00:26 1 PAD Sodium Lauryl Sulfate 240 ml PRN PRN TOP 06/21/25 23:15 06/22/25 00:26 240 ML Benzocaine 1 applic PRN PRN TOP 06/21/25 23:15 06/22/25 00:26 1 APPLIC Butorphanol Tartrate 1 mg Q4HPRN PRN IV 06/21/25 23:15 Cancel Butorphanol Tartrate 2 mg Q4HPRN PRN IV 06/21/25 23:15 Cancel Lidocaine HCl 20 ml ONCE PRN IJ 06/21/25 23:15 Cancel Terbutaline Sulfate 0.25 mg ONCE PRN SC 06/22/25 08:15 Cancel Acetaminophen 650 mg Q4HP PRN PO 06/22/25 21:00 Ondansetron HCl 4 mg Q4HPRN PRN PO 06/22/25 21:00 Docusate Sodium 200 mg HS PO 06/22/25 22:00 Ibuprofen 800 mg Q6HR PO 06/23/25 00:00 laboratory and microbiology Laboratory Tests 06/23/25 04:50 Test 06/23/25 04:50 Range/Units Serum Glucose 90 74-106 mg/dL Objective O: AFVSS Chest: heart and lung sounds normal. Abd soft, non-tender, fundus firm, BS, no rebound or guarding, Ext Neg Homans, Non-tender, edema Lochia - minimal Labs Reviewed, stable Assessment/Plan PPD#1 s/p at term for IUGR BP's stable, no evidence of pre-eclampsia (isolated proteinuria only) Plan: Supportive care/ dc planning for tomorrow, baby has jaundice receiving photo therapy. Plan discussed with: Patient, Spouse Visit Coding OBGYN Date of Service: Jun 23, 2025 Billing Provider: ROS MEDRANO DO DEPENDENCY DIRECTOR Common Visit Codes: [id number] INP/OBS CARE(HIGH) ROS MEDRANO DO Jun 23, 2025 09:52
[2025-06-23 11:00] VITALS: BP 112/67; PULSE 105; RESP 18; TEMP 98.3; O2SAT 98
[2025-06-23 19:00] VITALS: BP 124/72; PULSE 89; RESP 18; TEMP 98.2; O2SAT 98
[2025-06-23 22:35] VITALS: BP 127/83; PULSE 77; RESP 19; TEMP 97.8; O2SAT 98
[2025-06-24 03:30] VITALS: BP 119/68; PULSE 82; RESP 17; TEMP 98; O2SAT 97
[2025-06-24 07:00] VITALS: BP 123/78; PULSE 75; RESP 18; TEMP 98; O2SAT 98
--- NOTE | 2025-06-24 08:36 | DVHDS2 ---
Physician Discharge Progress N Final Diagnosis: Term , delivered growth restriction Operations or Procedures: Operations or Procedures Induction of labor Commentary: Commentary BP's normal, no evidence of pre-eclampsia Condition on Discharge: Stable Disposition: Home Discharge Instructions: Diet: Regular Activity: Light activity Activity comment: Pelvic rest x 6 week Follow Up/Referral: [address] Marrufo Medications: Ibuprofen PRN pain Follow Up Care: Discharge Statement: "Patient was advised to return to the ER or call 911 if any headaches, dizziness, shortness of breath, chest pain, abdominal pain, bleeding, fevers, or worsening of medical condition. Patient was counseled about treatment plan, medications, possible side effects, patientverbalized understanding. All questions were answered to the best of my ability. This discharge took greater then 30 minutes in planning, reviewing documentation, counseling the patient, and discussing with other team members." Visit Coding OBGYN Date of Service: Jun 24, 2025 Billing Provider: ROS MEDRANO DO DANCE ENTERTAINER Common Visit Codes: [id number] DISCH DAY <30MIN ROS MEDRANO DO Jun 24, 2025 08:36
[2025-06-24 09:56] VITALS: TEMP 36.7
== END 2025-06-24 11:32 | disposition home or self-care (01) | DRG 560 ==
LOC: OBSVTOIN 23:09 → LDRP 23:09
PROVIDERS: ADMIT Obstetrics & Gynecology; ATTEND Obstetrics & Gynecology
PROC: 10E0XZZ Delivery of Products of Conception, External Approach (ICD-10-PCS; principal; 2025-06-22)
PROC: 0HQ9XZZ Repair Perineum Skin, External Approach (ICD-10-PCS; 2025-06-22)
PROC: 3E0R3BZ Introduction of Anesthetic Agent into Spinal Canal, Percutaneous Approach (ICD-10-PCS; 2025-06-22)
PROC: 00HU33Z Insertion of Infusion Device into Spinal Canal, Percutaneous Approach (ICD-10-PCS; 2025-06-22)
DX: O36.5930 Maternal care for other known or suspected poor fetal growth, third trimester, not applicable or unspecified (principal); Z37.0 Single live birth; R71.0 Precipitous drop in hematocrit; O70.0 First degree perineal laceration during delivery; Z3A.38 38 weeks gestation of pregnancy; Z91.018 Allergy to other foods
CPT/HCPCS: 36415; 59025; 59409; 62282; 76815; 76819; 80053; 80307; 81001; 82570; 84156; 84550; 85025; 85610; 85730; 86780; 86803; 86850; 86870; 86900; 86901; 90384; 94760; 94762; 96360; 96361; 96365; 96366; 96372; 96374; G0378; J2405; J2590